=== PATIENT | male | born 1960 | race Caucasian/White ===

== ENCOUNTER 2017-02-27 23:16 | Emergency (ER) | payer OTHER ==
[~2017-02-27] VITALS: Ht 182.9 cm; Wt 88.0 kg
[2017-02-27 23:18] VITALS: BP 173/99; PULSE 86; RESP 16; TEMP 97.9; O2SAT 97
--- NOTE | 2017-02-28 02:34 | PD ---
HPI Chief Complaint: Skin Problem Time Seen by Provider: 02:02 Travel History International Travel<30 days: No Contact w/Intl Traveler<30days: No Traveled to known affect area: No History of Present Illness HPI So 56 year-old woman who presents to the emergency department complaining of draining wound from his rectum. He had an abscess there year or so ago and had a cut into. He states he gets intermittent drainage. He had some pain and fullness today and started draining again. 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 He also states he has a history of chronic pancreatitis, drinks alcohol regularly, and is been on a some intermittent pains in his upper abdomen as well. History Past Medical History Medical History: Denies Significant Hx Tetanus Vaccination: Unknown Influenza Vaccination: No Social History Alcohol Use: Yes (DAILY 8-10 DRINKS DAILY) Tobacco Use: Yes (CIGARS) Allergies-Medications (Allergen,Severity, Reaction): Coded Allergies: Penicillin (Verified Adverse Reaction, Intermediate, SYNCOPE, 02/28/17) Reported Meds & Prescriptions Reported Meds & Active Scripts Active No Active Prescriptions or Reported Medications Review of Systems Except as stated in HPI: all other systems reviewed are Neg Physical Exam Narrative GENERAL: Well-appearing 56 year-old woman, no acute distress. SKIN: Focused skin assessment warm/dry. CARDIOVASCULAR: Regular rate and rhythm. No murmur appreciated. RESPIRATORY: No accessory muscle use. Clear to auscultation. Breath sounds equal bilaterally. GASTROINTESTINAL: Abdomen soft, non-tender, nondistended. Hepatic and splenic margins not palpable. MUSCULOSKELETAL: No obvious deformities. No clubbing. No cyanosis. No edema. RECTAL: Normal appearance of the rectum. Just adjacent to it on the left medial buttock, a centimeter or so remote from the rectum, there is a small hole without erythema redness. There is some drainage. This appears to be a fistula. Data Data Last Documented VS Vital Signs Date Time Temp Pulse Resp B/P Pulse Ox O2 Delivery O2 Flow Rate FiO2 02/27/17 23:18 97.9 86 16 173/99 97 Room Air [facility] Medical Decision Making Medical Screen Exam Complete: Yes Emergency Medical Condition: Yes Differential Diagnosis Abscess, fistula, cyst, other Narrative Course Medical decision making 48 year-old woman what appears to be a fistula in his rectum. This is likely secondary to the abscess that was drained. Recommend follow-up with colorectal surgery. Diagnosis Primary Impression: Fistula Referrals: Junaid Lang MD 1 week Doroteo Snow MD 1 week Therese Vasquez MD 1 week Additional Instructions: Follow-up with the colorectal surgeon of your choice for further evaluation of your fistula. Return to the emergency department for any new or worsening symptoms. Med/Other Pt SpecificInfo: No Change to Meds Scripts No Active Prescriptions or Reported Meds Disposition: 01 DISCHARGE HOME Condition: Stable Nic Dillon MD Feb 28, 2017 02:34
== END 2017-02-28 02:57 | disposition home or self-care (01) ==
LOC: NEPC 23:16
DX: K60.4 Rectal fistula (principal); F17.290 Nicotine dependence, other tobacco product, uncomplicated
CPT/HCPCS: 99282

== ENCOUNTER 2017-09-29 18:04 | Emergency (ER) | payer OTHER ==
[2017-09-29 18:06] VITALS: BP 180/99; PULSE 105; RESP 16; TEMP 97.8; O2SAT 98
[2017-09-29] MEDS ORDERED: IBUP-232 PO (18:52)
--- NOTE | 2017-09-29 19:15 | PD ---
HPI Chief Complaint: Musculoskeletal Complaint Time Seen by Provider: 19:11 Travel History International Travel<30 days: No Contact w/Intl Traveler<30days: No Traveled to known affect area: No History of Present Illness HPI 56-year-old white male presents to emergency department with complaints of a area of swelling to his right flank which is noted after a fall 10 days ago. Patient states that he had slipped while walking in a pair of flip-flops falling down on the edge of a set of stairs with his right flank. The patient had immediate pain and swelling. He states that he had large area of bruising. Over the past week the bruising has now resolved but he has noted an area of mild tenderness and swelling to his right flank. The patient was concerned and presents to the ER for evaluation. He denies any head injury. No central bony back pain. No nausea vomiting. No abdominal pain. No dysuria, frequency, hematuria. He's been eating and drinking normally. Pain is mild. He does not have a primary care doctor. He does have a history of hypertension which goes untreated. History Past Medical Histgory Narrative Medical Hypertension Tetanus Vaccination: < 5 Years Past Surgical History Narrative Surgical Left ankle fracture with ORIF Social History Alcohol Use: Yes (DAILY 8-10 DRINKS DAILY) Tobacco Use: Yes (CIGARS) Allergies-Medications (Allergen,Severity, Reaction): Coded Allergies: penicillin G (Unverified Adverse Reaction, Intermediate, SYNCOPE, 09/29/17) Reported Meds & Prescriptions Reported Meds & Active Scripts Active Reported Ibuprofen 600 Mg Tab 600 Mg PO Q6H PRN Review of Systems Except as stated in HPI: all other systems reviewed are Neg Physical Exam Narrative GENERAL: Well-developed, well-nourished in no acute distress. Nontoxic appearing. HEAD: Normocephalic, atraumatic. EYES: Pupils equal round and reactive. Extraocular motions intact. No scleral icterus. No injection or drainage. ENT: TMs clear without erythema. The external auditory canals clear. Nose: clear . Posterior pharynx is pink and moist. No tonsillar edema or exudate. Uvula midline. Airway patent. NECK: Trachea midline.Supple, nontender, moves head freely. No central bony tenderness or spasm. CARDIOVASCULAR: Regular rate and rhythm without murmurs, gallops, or rubs. RESPIRATORY: Clear to auscultation. Breath sounds equal bilaterally. No wheezes , rales, or rhonchi. GASTROINTESTINAL: Abdomen soft, non-tender, nondistended. No hepato-splenomegaly , or palpable masses. No guarding. EXTREMITIES: No clubbing, cyanosis, or edema. No joint tenderness, effusion, or edema noted. BACK: Nontender without deformity or crepitance. No flank tenderness. Patient has a large hematoma to the right flank. It is a soft tissue area measuring approximately 6 x 8 cm. It is mobile. Minimal tenderness. Data Data Last Documented VS Vital Signs Date Time Temp Pulse Resp B/P (MAP) Pulse Ox O2 Delivery O2 Flow Rate FiO2 09/29/17 18:06 97.8 105 16 180/99 (126) 98 MDM Medical Screen Exam Complete: Yes Emergency Medical Condition: No Differential Diagnosis MDM: High Differential diagnoses: Fracture, sprain, strain, dislocation, contusion, neurovascular injury Narrative Course Patient has a large hematoma to his right flank. I see no emergent condition at this time. The does not appear to be infectious. Patient is moving freely. A medical screening exam was performed: At the time of evaluation the presenting medical condition was determined not to be of an emergent nature. The patient was given the option of receiving additional care, but declined. Patient was given options for additional community resources from which to obtain care. The Patient Has Been advised to seek medical attention for their presenting complaint. The patient has been advised to return to the ER at any time if an emergent condition develops. Primary Impression: Encounter for medical screening examination Condition: Vivek Gonzalez Sep 29, 2017 19:15
[2017-09-29 19:20] VITALS: BP 133/87; PULSE 84; RESP 16; O2SAT 98
== END 2017-09-29 19:28 | disposition left against medical advice (07) ==
LOC: NEPK 18:04
DX: S30.1XXA Contusion of abdominal wall, initial encounter (principal); W10.9XXA Fall (on) (from) unspecified stairs and steps, initial encounter; Y93.01 Activity, walking, marching and hiking
CPT/HCPCS: 99281

== ENCOUNTER 2017-11-05 12:14 | Emergency (ER) | payer OTHER ==
[~2017-11-05] VITALS: Ht 180.3 cm; Wt 100.0 kg
[~2017-11-05 12:14] MED LIST: IBUP-232 PO
[2017-11-05 12:16] VITALS: BP 180/108; PULSE 88; RESP 16; TEMP 97.8; O2SAT 98
--- NOTE | 2017-11-05 12:43 | PD ---
HPI Chief Complaint: Eye Problems/Injury Time Seen by Provider: 12:34 Travel History International Travel<30 days: No Contact w/Intl Traveler<30days: No Traveled to known affect area: No History of Present Illness HPI 57-year-old male presents to the emergency department for evaluation of erythematous left eye. He denies any visual changes. He does report associated pain and drainage. No photophobia. Patient denies any trauma or foreign body to the left eye. He has no chronic medical problems and takes no prescribed medications. Current pain is 8/10 without radiation. Reports some mild nasal congestion as well, but no other symptoms. He states he went to an urgent care yesterday who performed a fluorescein examination and no abnormality was found. He was prescribed antibiotic eyedrops yesterday. Patient denies any other symptoms or complaints at this time. Moderate severity. Patient does not wear contacts. PFSH Past Medical History Hx Anticoagulant Therapy: No Immunizations Current: No Pancreatitis: Yes (HX OF) Past Surgical History Other Surgery: Yes Social History Alcohol Use: Yes (DAILY 8-10 DRINKS DAILY) Tobacco Use: Yes (CIGARS) Substance Use: Yes (HX OF IV COCAINE, currently uses Xanax off the street, no current IV drug use) Allergies-Medications (Allergen,Severity, Reaction): Coded Allergies: penicillin G (Unverified Adverse Reaction, Intermediate, SYNCOPE, 09/29/17) Reported Meds & Prescriptions Reported Meds & Active Scripts Active Reported Ibuprofen 600 Mg Tab 600 Mg PO Q6H PRN Review of Systems Except as stated in HPI: all other systems reviewed are Neg Physical Exam Narrative GENERAL: Well-nourished, well-developed male patient, afebrile. SKIN: Focused skin assessment warm/dry. HEAD: Normocephalic. Atraumatic. EYES: No scleral icterus. Left sclera is erythematous. PERRLA. EOM intact. No photophobia or consensual photophobia on exam. Fluorescein examination shows a corneal abrasion to the 5 o'clock position. IOP is 16 in the right eye and 12 in the left eye. No foreign body seen on upper lid eversion. NECK: Supple, trachea midline. No JVD or lymphadenopathy. CARDIOVASCULAR: Regular rate and rhythm without murmurs, gallops, or rubs. RESPIRATORY: Breath sounds equal bilaterally. No accessory muscle use. Lungs sounds are clear to auscultation. GASTROINTESTINAL: Abdomen soft, non-tender, nondistended. MUSCULOSKELETAL: No cyanosis, or edema. BACK: Nontender without obvious deformity. No CVA tenderness. Data Data Last Documented VS Vital Signs Date Time Temp Pulse Resp B/P (MAP) Pulse Ox O2 Delivery O2 Flow Rate FiO2 11/05/17 12:16 97.8 88 16 180/108 (132) 98 Room Air Orders Orders Proparacaine 0.5% Opth Soln (Alcaine 0.5 (11/05/17 12:45) MDM Medical Decision Making Medical Screen Exam Complete: Yes Emergency Medical Condition: Yes Medical Record Reviewed: Yes Differential Diagnosis Conjunctivitis versus iritis versus foreign body versus acute glaucoma Narrative Course 57-year-old male presents to the emergency department for evaluation of left eye symptoms that started 2 days ago. He was prescribed antibiotic eyedrops yesterday by an urgent care. Fluorescein examination shows a corneal abrasion to the 5 o'clock position. No findings of iritis or acute glaucoma. Visual acuity is 20/100 bilaterally. He reports history of astigmatism. He is to continue antibiotic eyedrops as prescribed. I will give him the name and number of her call center consultant pony trimmer for follow-up. He verbalizes agreement and understanding. The patient was discharged in stable condition with instructions, including return instructions and follow up instructions. Diagnosis Primary Impression: Corneal abrasion, left Qualified Codes: S05.02XA - Injury of conjunctiva and corneal abrasion without foreign body, left eye, initial encounter Referrals: Roxy Low MD call for appointment Patient Instructions: Corneal Abrasion (ED), General Instructions Additional Instructions: Continue antibiotic eyedrops as prescribed. Warm, moist compresses. Follow-up with call center consultant. Dr. Low is her call center consultant pony trimmer. Please call her office for an appointment. Return to the emergency department for any acute worsening of symptoms. Med/Other Pt SpecificInfo: No Change to Meds Disposition: 01 DISCHARGE HOME Condition: Stable Merly Be Nov 05, 2017 12:43
[2017-11-05] MEDS ORDERED: PROPARACAINE HCL 0.5% OPHT SOLN 15 ML BTL EACH EYE ONE (12:45)
== END 2017-11-05 13:45 | disposition home or self-care (01) ==
LOC: NEPK 12:14
DX: S05.02XA Injury of conjunctiva and corneal abrasion without foreign body, left eye, initial encounter (principal); X58.XXXA Exposure to other specified factors, initial encounter; Z72.0 Tobacco use
CPT/HCPCS: 99283

== ENCOUNTER 2018-04-28 09:46 | Observation (INO) ==
--- NOTE | 2018-04-28 10:46 | ED ---
HPI General Chief Complaint: Chest Pain Stated Complaint: GI Time Seen by Provider: 04/28/18 10:36 History of Present Illness HPI narrative: This patient complains of chest pain. He describes it as a tightness and a pressure. It is in the left lower chest. He is not having abdominal pain today. He does have history of pancreatitis and alcoholism. Symptom severity is moderate. This is been going on intermittently for about 2 months. He is an ex-smoker and has hypertension which he does not treat. Denies alcohol today. No alleviating factors. No exacerbating factors. Does not think he is ever had stress testing. Complete Quality Measures for STEMI Alert Patients Related Data Home Medications Medication Instructions Recorded Confirmed No Known Home Medications 04/28/18 04/28/18 Allergies Allergy/AdvReac Type Severity Reaction Status Date / Time penicillin G AdvReac Intermediate SYNCOPE Verified 04/28/18 10:20 Review of Systems ROS: all other systems reviewed are negative PMFSH Social History Social History Substance History: Past History Second Hand Smoke Exposure: Yes Smoking Status: Current every day smoker Tobacco Type: Cigars How Often Do You Have a Drink Containing Alcohol: 2 to 3 times a week Recent Out of Country Travel within the Last 8 Weeks: No Immunization History Tetanus Immunization: <5 Years Hx Influenza Vaccine This Season: No Exam Narrative Exam Narrative: GENERAL: Well-nourished, well-developed patient in no apparent distress. SKIN: Focused skin assessment reveals no rash and nodules. Skin is Warm and dry. HEAD: Atraumatic. Normocephalic. EYES: Pupils equal and round. No scleral icterus. No injection or drainage. ENT: No nasal bleeding or discharge. Mucous membranes pink and moist. NECK: Trachea midline. No JVD. CARDIOVASCULAR: Regular rate and rhythm. No murmur appreciated. RESPIRATORY: No accessory muscle use. Clear to auscultation. Breath sounds equal bilaterally. GASTROINTESTINAL: Abdomen soft, non-tender, nondistended. Hepatic and splenic margins not palpable. MUSCULOSKELETAL: No obvious deformities. No clubbing. No cyanosis. No edema. NEUROLOGICAL: Awake and alert. No obvious cranial nerve deficits. Motor grossly within normal limits. Normal speech. PSYCHIATRIC: Appropriate mood and affect; insight and judgment normal. Course Initial Documented Vital Signs Temperature 97.8 F 04/28/18 10:01 Pulse Rate 97 H 08/15/18 10:01 Respiratory Rate 18 04/28/18 10:01 Pulse Oximetry 97 04/28/18 10:01 Last Documented Vital Signs Temperature 97.8 F 04/28/18 10:01 Pulse Rate 86 04/28/18 15:44 Respiratory Rate 18 04/28/18 15:44 Blood Pressure 182/100 H 04/28/18 15:44 Pulse Oximetry 98 04/28/18 15:44 Medical Decision Making MDM Narrative Medical decision making narrative: IV placed and labs sent. I reviewed his EKG which shows sinus rhythm and no acute ST elevation I reviewed his chest x-ray which is negative CBC shows thrombocytopenia, likely from alcoholic liver disease. He is not intoxicated now. His mental status is normal. Metabolic's are reviewed. He will be a 23 hour observation in the chest pain center to rule out cardiac cause of his symptoms. He is currently chest pain-free. Medical Screen Exam Complete: Yes Emergency Medical Condition: Yes Medical Records Medical records reviewed: Yes I reviewed the patient's medical records. Lab Data Result diagrams: 04/28/18 10:56 04/28/18 10:56 Lab Results 04/28/18 04/28/18 04/28/18 Range/Units 10:56 10:56 10:56 WBC 4.9 (4.0-11.0) th/mm3 RBC 4.41 L (4.50-5.90) mil/mm3 Hgb 16.2 (13.0-17.0) gm/dL Hct 45.8 (39.0-51.0) % MCV 103.9 H (80.0-100.0) fL MCH 36.7 H (27.0-34.0) pg MCHC 35.3 (32.0-36.0) % RDW 13.5 (11.6-17.2) % Plt Count 56 L (150-450) th/mm3 MPV 8.4 (7.0-11.0) fL Prelim Diff (Auto) Slide review pending Neut % (Auto) 71.1 H (16.0-70.0) % Lymph % (Auto) 20.9 (9.0-44.0) % Fisher % (Auto) 7.0 (0.0-8.0) % Eos % (Auto) 0.4 (0.0-4.0) % Baso % (Auto) 0.6 (0.0-2.0) % Neut # (Auto) 3.5 (1.8-7.7) th/mm3 Lymph # (Auto) 1.0 (1.0-4.8) th/mm3 Fisher # (Auto) 0.3 (0.0-0.9) th/mm3 Eos # (Auto) 0.0 (0.0-0.4) th/mm3 Baso # (Auto) 0.0 (0.0-0.2) th/mm3 WBC Differential . Diff Scan Auto diff confirmed Differential Comment . Platelet Estimate Low L (Normal) Platelet Morphology Normal (Normal) Stomatocytes 1+ H (None) PT 10.6 (9.8-11.6) sec INR 1.0 Ratio APTT 24.8 (24.3-30.1) sec Sodium (136-145) meq/L Potassium (3.5-5.1) meq/L Chloride (98-107) meq/L Carbon Dioxide (21.0-32.0) meq/L Anion Gap (5-15) meq/L BUN (7-18) mg/dL Creatinine (0.60-1.30) mg/dL Estimated GFR (>89) mL/min Random Glucose (74-106) mg/dL Calcium (8.5-10.1) mg/dL Total Bilirubin (0.2-1.0) mg/dL AST (15-37) U/L ALT (12-78) U/L Alkaline Phosphatase (45-117) U/L Total Creatine Kinase (39-308) U/L CK-MB (CK-2) (0.5-3.6) ng/mL Troponin I Less than 0.02 L (0.02-0.05) ng/mL Total Protein (6.4-8.2) g/dL Albumin (3.4-5.0) g/dL Lipase 238 (73-393) U/L Serum Alcohol Less than 3 (0-5) mg/dL 04/28/18 Range/Units 10:56 WBC (4.0-11.0) th/mm3 RBC (4.50-5.90) mil/mm3 Hgb (13.0-17.0) gm/dL Hct (39.0-51.0) % MCV (80.0-100.0) fL MCH (27.0-34.0) pg MCHC (32.0-36.0) % RDW (11.6-17.2) % Plt Count (150-450) th/mm3 MPV (7.0-11.0) fL Prelim Diff (Auto) Neut % (Auto) (16.0-70.0) % Lymph % (Auto) (9.0-44.0) % Fisher % (Auto) (0.0-8.0) % Eos % (Auto) (0.0-4.0) % Baso % (Auto) (0.0-2.0) % Neut # (Auto) (1.8-7.7) th/mm3 Lymph # (Auto) (1.0-4.8) th/mm3 Fisher # (Auto) (0.0-0.9) th/mm3 Eos # (Auto) (0.0-0.4) th/mm3 Baso # (Auto) (0.0-0.2) th/mm3 WBC Differential Diff Scan Differential Comment Platelet Estimate (Normal) Platelet Morphology (Normal) Stomatocytes (None) PT (9.8-11.6) sec INR Ratio APTT (24.3-30.1) sec Sodium 137 (136-145) meq/L Potassium 3.2 L (3.5-5.1) meq/L Chloride 97 L (98-107) meq/L Carbon Dioxide 27.7 (21.0-32.0) meq/L Anion Gap 12 (5-15) meq/L BUN 13 (7-18) mg/dL Creatinine 1.33 H (0.60-1.30) mg/dL Estimated GFR 55 L (>89) mL/min Random Glucose 128 H (74-106) mg/dL Calcium 9.4 (8.5-10.1) mg/dL Total Bilirubin 1.8 H (0.2-1.0) mg/dL AST 296 H (15-37) U/L ALT 111 H (12-78) U/L Alkaline Phosphatase 103 (45-117) U/L Total Creatine Kinase 133 (39-308) U/L CK-MB (CK-2) 1.5 (0.5-3.6) ng/mL Troponin I (0.02-0.05) ng/mL Total Protein 7.7 (6.4-8.2) g/dL Albumin 3.9 (3.4-5.0) g/dL Lipase (73-393) U/L Serum Alcohol (0-5) mg/dL Imaging Data Radiologist's impression: Chest X-Ray 04/28/18 10:42 CONCLUSION: No acute cardiopulmonary process. Discharge Plan Discharge Disposition Patient Disposition: 30 Still Patient Discharge Details Diagnosis: Chest pain in adult Physicians Team ED Provider: Bayron Jacques Primary Care Provider: Primary Care Jyotsna Bowling Rxs /Orders / Referrals /Forms Prescriptions: No Action No Known Home Medications RF: 0 Discharge Instructions Patient Printed Instructions: Chest Pain (ED) Discharge Interventions Interventions: Vital Signs Last Done: 04/28/18 12:00 Status ED Status: With Doctor
--- NOTE | 2018-04-28 10:55 | XR ---
EXAM DATE: 04/28/2018 10:53 AM EDT AGE/SEX: 57 years / Male INDICATIONS: Chest pain and shortness of breath. CLINICAL DATA: This is the patient's initial encounter. Patient reports that signs and symptoms have been present for 3 days and indicates a pain score of 8/10. MEDICAL/SURGICAL HISTORY: Hypertension. Pancreatitis. None. COMPARISON: [facility] [place], CHEST SINGLE AP, 11/28/2014. . FINDINGS: A single AP view of the chest demonstrates the lungs to be symmetrically aerated without evidence of mass, infiltrate or effusion. The cardiomediastinal contours are unremarkable. Osseous structures a re intact. CONCLUSION: No acute cardiopulmonary process. Electronically signed by: Red Rainey MD 04/28/2018 10:54 AM EDT
--- NOTE | 2018-04-28 11:42 | ECG ---
Date Performed: 04/28/2018 Time Performed: 10:21:36 PTAGE: 57 years EKG: Sinus rhythm POSSIBLE RIGHT VENTRICULAR CONDUCTION DELAY POSSIBLE INFERIOR MYOCARDIAL INFARCTION ABNORMAL ECG NO PREVIOUS TRACING DOCTOR: Figueroa Castro Interpretating Date/Time 04/28/2018 11:40:51
[2018-04-28 12:05] LABS: Baso % (Auto) 0.6 % (0.0-2.0); Eos % (Auto) 0.4 % (0.0-4.0); Hematocrit 45.8 % (39.0-51.0); Hemoglobin 16.2 gm/dL (13.0-17.0); Lymph % (Auto) 20.9 % (9.0-44.0); Mean Corpuscular HGB Conc 35.3 % (32.0-36.0); Mean Corpuscular Hemoglobin 36.7 pg (27.0-34.0); Mean Corpuscular Volume 103.9 fL (80.0-100.0); Mean Platelet Volume 8.4 fL (7.0-11.0); Mono # (Auto) 0.3 th/mm3 (0.0-0.9); Neut # (Auto) 3.5 th/mm3 (1.8-7.7); Neut % (Auto) 71.1 % (16.0-70.0); Platelet Count 56 th/mm3 (150-450); Red Blood Count 4.41 mil/mm3 (4.50-5.90); Red Cell Distribution Width 13.5 % (11.6-17.2); White Blood Count 4.9 th/mm3 (4.0-11.0)
[2018-04-28 12:14] LABS: Activated Partial Thrombo Time 24.8 sec (24.3-30.1); Prothrombin Time 10.6 sec (9.8-11.6)
[2018-04-28 12:27] LABS: Alanine Aminotransferase 111 U/L (12-78); Albumin 3.9 g/dL (3.4-5.0); Anion Gap 12 meq/L (5-15); Aspartate Aminotransferase 296 U/L (15-37); Blood Urea Nitrogen 13 mg/dL (7-18); Calcium 9.4 mg/dL (8.5-10.1); Carbon Dioxide 27.7 meq/L (21.0-32.0); Chloride 97 meq/L (98-107); Glomerular Filtration Rate 55 mL/min (>89); Glucose,Random 128 mg/dL (74-106); Potassium 3.2 meq/L (3.5-5.1); Sodium 137 meq/L (136-145)
[2018-04-28 12:28] LABS: Lipase 238 U/L (73-393)
[2018-04-28 12:29] LABS: Alkaline Phosphatase 103 U/L (45-117); Creatine Kinase 133 U/L (39-308); Total Protein 7.7 g/dL (6.4-8.2)
[2018-04-28 12:39] LABS: Platelet Morphology Normal (Normal); Stomatocytes 1+
[2018-04-28 12:52] LABS: Creatine Kinase MB 1.5 ng/mL (0.5-3.6)
[2018-04-28] MEDS ORDERED: Sod Chloride 0.9% Inj 1,000 ML IV.SIG ONE (16:51)
[2018-04-28] MEDS ORDERED: LORazepam 1 MG Tablet PO PRN (16:55)
[2018-04-28] MEDS ORDERED: Haloperidol Inj 5 MG/ML Ampul IV.PUSH PRN (16:55)
[2018-04-28] MEDS ORDERED: Lisinopril 10 MG Tablet PO SCH (17:00)
--- NOTE | 2018-04-28 17:07 | P.HPCA ---
History of Present Illness Primary Care Physician: No Primary Care Physician Chief Complaint: Chest pain History of Present Illness: This is a 57-year-old male with stated history of hypertension and alcoholism that presents to ED with complaint of having 2 months of intermittent left- sided chest discomfort that he describes as a tightness and a pressure. Found nothing in particular to bring it on. States is not exertional. He is found that at times rubbing on the area does seem to help. At times he has been short of breath. Denies diaphoresis. Over the last 2 days he has had nausea and emesis with it but thinks that that may be related to his decision to quit drinking alcohol. Patient states he had been drinking about 10 ounces of whiskey a day for years but decided 2 days ago he would no longer drink alcohol. Since then he has had nausea, vomiting, and diarrhea. Stools have been nonbloody. States his stools have been watery but not a lot of stool per bowel movement. Denies having abdominal pain. His LFTs were elevated and he states that he has had that in the past. He has also had pancreatitis but states this does not feel similar. His lipase is normal today. Cannot recall ever having a stress test or cardiac catheterization. Was diagnosed with hypertension years ago but has not taken medications for a long time. Denies history of DTs. Patient smokes about 2 cigars a day for the last 15 years but prior that he smoked 1 pack cigarettes daily for 20 years. He has an average 10 ounces of whiskey per day but quit drinking 2 days ago. Denies illicit drugs. Denies family history of CAD. States his only surgery was repair of left ankle fracture. - Diagnosis (1) Chest pain (2) Hypertension (3) Alcohol abuse (4) Elevated LFTs (5) Tobacco abuse Review of Systems General: Patient denies fevers, chills, and recent travel. HEENT: Patient denies headache, sore throat, difficulty swallowing. Cardiovascular: Has the chest discomfort as mentioned above. Denies sensation of heart beating rapidly or irregularly. No syncope. Denies diaphoresis. Respiratory: Mild shortness of breath. Denies shortness of breath or inspirational chest discomfort. Denies coughing wheezing or hemoptysis. GI: He has had nausea with a few episodes of emesis. She also had diarrhea. Patient denies abdominal pain and bloody stools. Musculoskeletal: Patient denies joint pain or edema. Denies calf pain or edema. Neurovascular: Patient denies numbness, tingling, weakness in extremities. Denies headache. Endocrine: Denies polyuria and polydipsia. Hematologic: Denies easy bruising. Skin: Denies rash or itching. PMFSH - History History Provided By: Patient - Medical History Medical History: Medical History (Last Reviewed 04/24/18 @ 07:32 by FARRUKH Dietrich) Alcohol abuse History of ankle fracture Pancreatitis - Tobacco History Second Hand Smoke Exposure: Yes Tobacco Use In Past 30 Days: Yes Smoking Status: Current every day smoker Tobacco Type: Cigars - Alcohol History How Often Do You Have a Drink Containing Alcohol: 2 to 3 times a week - Substance Use History Substance History: Past History - Travel History Recent Travel Out of the Country Within the Last 8 Weeks: No - Immunization History Tetanus Immunization: <5 Years Hx Influenza Vaccine This Season: No Medications and Allergies Active Medications: Active Medications Albuterol (Duoneb Neb (Prn)) 1 ampul NEB Q4HR NEB PRN PRN Reason: SHORTNESS OF BREATH/WHEEZING Aspirin (Aspirin) 325 mg PO DAILY DEV Clonidine HCl (Catapres) 0.1 mg PO Q6H PRN PRN Reason: SBP >165 OR DBP > 110 Sodium Chloride (Ns Inj) 1,000 mls @ 0 mls/hr IV.SIG BOLUS ONE Stop: 04/28/18 16:52 Lisinopril (Prinivil) 10 mg PO DAILY DEV Multivitamins (Theragran) 1 tab PO DAILY DEV Ondansetron HCl (Zofran Inj) 4 mg IV.PUSH Q6H PRN PRN Reason: NAUSEA Pantoprazole Sodium (Protonix) 40 mg PO DAILY DEV Sodium Chloride (Ns Flush) 2 ml IV.FLUSH UNSCH PRN PRN Reason: FLUSH AFTER USING IV ACCESS Sodium Chloride (Ns Flush) 2 ml IV.FLUSH BID DEV Sodium Chloride (Ns Flush) 2 ml IV.FLUSH PRN PRN PRN Reason: FLUSH AFTER USING IV ACCESS Thiamine HCl (Vitamin B1) 100 mg PO ONCE ONE Stop: 04/28/18 16:53 Allergies Allergy/AdvReac Type Severity Reaction Status Date / Time penicillin G AdvReac Intermediate SYNCOPE Verified 04/28/18 10:20 Home Medications Medication Instructions Recorded Confirmed Type No Known Home Medications 04/28/18 04/28/18 History Exam Vital signs: Vital Signs 04/28/18 10:01 04/28/18 10:03 04/28/18 10:22 Temperature 97.8 F Pulse Rate 97 H 87 Respiratory Rate 18 17 Blood Pressure 177/112 H 162/106 H Pulse Oximetry 97 97 04/28/18 12:00 04/28/18 15:44 Temperature Pulse Rate 87 86 Respiratory Rate 19 18 Blood Pressure 177/104 H 182/100 H Pulse Oximetry 97 98 Intake & Output 04/27/18 04/28/18 04/28/18 18:59 06:59 18:59 Weight 102.058 kg Narrative: GENERAL: This is a well-nourished, well-developed patient, in no apparent distress. Patient speaks in clear complete sentences. Patient is pleasant. HEENT: Head is atraumatic and normocephalic. Neck is supple without lymphadenopathy and trachea is midline. No JVD or carotid bruits. CARDIOVASCULAR: Regular rate and rhythm without murmurs, gallops, or rubs. RESPIRATORY: Mild wheezes bilateral bases. Breath sounds equal bilaterally. No rales or rhonchi. Chest wall is nontender. No use of accessory muscles. GASTROINTESTINAL: Abdomen is nontender, nondistended. Abdomen soft. No obvious pulsatile mass or bruit. No CVA tenderness. Strong femoral pulses bilaterally. Normal bowel sounds in all quadrants. MUSCULOSKELETAL: Patient is moving upper and lower extremities freely. No calf tenderness or edema, no Homans sign. Strong pulses in upper and lower extremities. NEUROLOGICAL: Patient is alert and oriented. Cranial nerves 2-12 are grossly intact. No focal deficits and speech is clear. SKIN: No rash and turgor is normal. Results 04/28/18 10:56 04/28/18 10:56 Cardiac Enzymes 04/28/18 04/28/18 Range/Units 10:56 10:56 AST 296 H (15-37) U/L CK-MB (CK-2) 1.5 (0.5-3.6) ng/mL Troponin I Less than 0.02 L (0.02-0.05) ng/mL Coagulation 04/28/18 Range/Units 10:56 PT 10.6 (9.8-11.6) sec APTT 24.8 (24.3-30.1) sec CBC 04/28/18 Range/Units 10:56 WBC 4.9 (4.0-11.0) th/mm3 RBC 4.41 L (4.50-5.90) mil/mm3 Hgb 16.2 (13.0-17.0) gm/dL Hct 45.8 (39.0-51.0) % Plt Count 56 L (150-450) th/mm3 Neut # (Auto) 3.5 (1.8-7.7) th/mm3 Lymph # (Auto) 1.0 (1.0-4.8) th/mm3 [place] # (Auto) 0.3 (0.0-0.9) th/mm3 Eos # (Auto) 0.0 (0.0-0.4) th/mm3 Baso # (Auto) 0.0 (0.0-0.2) th/mm3 Comprehensive Metabolic Panel 04/28/18 Range/Units 10:56 Sodium 137 (136-145) meq/L Potassium 3.2 L (3.5-5.1) meq/L Chloride 97 L (98-107) meq/L Carbon Dioxide 27.7 (21.0-32.0) meq/L BUN 13 (7-18) mg/dL Creatinine 1.33 H (0.60-1.30) mg/dL Calcium 9.4 (8.5-10.1) mg/dL AST 296 H (15-37) U/L ALT 111 H (12-78) U/L Alkaline Phosphatase 103 (45-117) U/L Total Protein 7.7 (6.4-8.2) g/dL Albumin 3.9 (3.4-5.0) g/dL Intake and Output 04/28/18 04/28/18 04/28/18 06:59 14:59 22:59 Other: Weight 102.058 kg Patient Weight 04/29/18 06:59 Weight 102.058 kg EKG interpretations - EKG EKG shows: sinus rhythm (Initial EKG is sinus rhythm without significant ST segment depressions or elevations.) Caprini VTE Risk Assessment Caprini VTE Risk Assessment: No/Low Risk (score <= 1) Caprini Risk Assessment Model: Point Value = 1 Point Value = 2 Point Value = 3 Point Value = 5 Age 41-60 Minor surgery BMI > 25 kg/m2 Swollen legs Varicose veins or History of unexplained or recurrent spontaneous Oral contraceptives or hormone replacement Sepsis (< 1 month) Serious lung disease, including pneumonia (< 1 month) Abnormal pulmonary function Acute myocardial infarction Congestive heart failure (< 1 month) History of inflammatory bowel disease Medical patient at bed rest Age 61-74 Arthroscopic surgery Major open surgery (> 45 min) Laparoscopic surgery (> 45 min) Malignancy Confined to bed (> 72 hours) Immobilizing plaster cast Central venous access Age >= 75 History of VTE Family history of VTE Factor V Leiden Prothrombin [id number] Lupus anticoagulant Anticardiolipin antibodies Elevated serum homocysteine Heparin-induced thrombocytopenia Other congenital or acquired thrombophilia Stroke (< 1 month) Elective arthroplasty Hip, pelvis, or leg fracture Acute spinal cord injury (< 1 month) Prophylaxis Regimen: Total Risk Factor Score Risk Level Prophylaxis Regimen 0-1 Low Early ambulation 2 Moderate Order ONE of the following: *Sequential Compression Device (SCD) *Heparin 5000 units SQ BID 3-4 Higher Order ONE of the following medications: *Heparin 5000 units SQ TID *Enoxaparin/Lovenox 40 mg SQ daily (WT < 150 kg, CrCl > 30 mL/min) *Enoxaparin/Lovenox 30 mg SQ daily (WT < 150 kg, CrCl > 10-29 mL/min) *Enoxaparin/Lovenox 30 mg SQ BID (WT < 150 kg, CrCl > 30 mL/min) AND/OR *Sequential Compression Device (SCD) 5 or more Highest Order ONE of the following medications: *Heparin 5000 units SQ TID (Preferred with Epidurals) *Enoxaparin/Lovenox 40 mg SQ daily (WT < 150 kg, CrCl > 30 mL/min) *Enoxaparin/Lovenox 30 mg SQ daily (WT < 150 kg, CrCl > 10-29 mL/min) *Enoxaparin/Lovenox 30 mg SQ BID (WT < 150 kg, CrCl > 30 mL/min) AND *Sequential Compression Device (SCD) Assessment and Plan - Assessment (1) Chest pain Code(s): R07.9 - Chest pain, unspecified Status: Acute (2) Hypertension Code(s): I10 - Essential (primary) hypertension Status: Acute (3) Alcohol abuse Code(s): F10.10 - Alcohol abuse, uncomplicated Status: Acute (4) Elevated LFTs Code(s): R94.5 - Abnormal results of liver function studies Status: Acute (5) Tobacco abuse Code(s): Z72.0 - Tobacco use Status: Acute - Plan * Chest pain: Patient will continue to have serial cardiac enzymes and EKGs for ruling out purposes. He will be seen by Dr. Sims of cardiology in the chest pain center in the morning. Patient will likely need a Lexiscan in the morning as he is not quite sure if he can walk on a treadmill. Patient would be discharged home however if stress test is nonischemic with instructions to follow-up with PCP. Return to ED for interval issues. * Hypertension: States he was on medication years ago but cannot recall it. We will try lisinopril and continue to monitor. Have Catapres as needed. * Alcohol abuse: [facility] protocol. He is to follow-up with outpatient therapy. * Tobacco abuse: Patient counseled on importance of smoking cessation. * Elevated LFTs: Patient has had this in the past. He needs to quit the alcohol abuse and follow-up with PCP for evaluation. Patient is stable at this time. He is agreeable to this plan.
[2018-04-28] MEDS: Lisinopril 10 MG Tablet PO SCH (17:43)
[2018-04-28] MEDS ORDERED: chlordiazePOXIDE 25 MG Capsule PO ONE (18:00)
[2018-04-28 18:07] LABS: Creatine Kinase 110 U/L (39-308)
[2018-04-28 21:41] LABS: Creatine Kinase 121 U/L (39-308)
--- NOTE | 2018-04-29 08:16 | P.PNCA ---
Subjective Interval history: No complaints overnight. No further chest discomfort. Denies feeling of DTs. States he is hungry. Physical Exam Vital signs: Vital Signs 04/28/18 10:01 04/28/18 10:03 04/28/18 10:22 Temperature 97.8 F Pulse Rate 97 H 87 Respiratory Rate 18 17 Blood Pressure 177/112 H 162/106 H Pulse Oximetry 97 97 04/28/18 12:00 04/28/18 15:44 04/28/18 17:48 Temperature Pulse Rate 87 86 75 Respiratory Rate 19 18 17 Blood Pressure 177/104 H 182/100 H 182/111 H Pulse Oximetry 97 98 99 04/28/18 18:36 04/29/18 00:25 04/29/18 04:23 Temperature 97.9 F 98.4 F 98.9 F Pulse Rate 71 71 72 Respiratory Rate 16 20 20 Blood Pressure 168/98 H 147/88 H 162/93 H Pulse Oximetry 98 100 99 Intake & Output 04/28/18 04/29/18 04/29/18 18:59 06:59 18:59 Intake Total 1140 / 1140 Balance 1140 / 1140 Weight 99.79 kg Intake: IV 1000 / 1000 NS Inj 1,000 ML @ Wide Open IV. 1000 / 1000 SIG BOLUS ONE Rx#:[id number] Oral 140 / 140 Other: # Voids 3 Weight On Admission 99.79 kg - Constitutional no acute distress - Routine HEENT Exam Head: Present: normocephalic, atraumatic - Routine Neck Exam Present: full ROM - Routine Cardiovascular Exam Present: RRR. Absent: murmur, gallop, rubs - Routine Abdominal Exam Present: soft, normoactive bowel sounds - Routine Extremities Exam Present: full ROM. Absent: edema - Routine Skin Exam Present: intact, dry, warm - Routine Neurological Exam Present: alert, oriented X3, normal speech. Absent: sensory deficit, motor deficit, tremors - Routine Psychiatric Exam Present: normal affect, cooperative, good insight, good judgment Assessment and Plan - Assessment (1) Chest pain Code(s): R07.9 - Chest pain, unspecified Status: Acute Plan: Admitted chest pain center. ACS ruled out 3 sets of EKGs and cardiac enzymes. Will be seen and evaluated by Dr. Jaydon Sims. Likely will proceed with exercise stress testing later this morning. Verbalized understanding and agreeable plan of care. (2) Hypertension Code(s): I10 - Essential (primary) hypertension Status: Acute Plan: Lisinopril 10 mg daily. Continue to monitor. (3) Alcohol abuse Code(s): F10.10 - Alcohol abuse, uncomplicated Status: Acute (4) Elevated LFTs Code(s): R94.5 - Abnormal results of liver function studies Status: Acute Plan: Patient currently trying to quit alcohol, last drink 3 days ago. Instructed to follow-up with PCP. (5) Tobacco abuse Code(s): Z72.0 - Tobacco use Status: Acute Plan: Strongly encouraged and stressed importance of tobacco cessation. Instructed to quit smoking. - Plan * Chest pain: Patient will continue to have serial cardiac enzymes and EKGs for ruling out purposes. He will be seen by Dr. Sims of cardiology in the chest pain center in the morning. Patient will likely need a Lexiscan in the morning as he is not quite sure if he can walk on a treadmill. Patient would be discharged home however if stress test is nonischemic with instructions to follow-up with PCP. Return to ED for interval issues. * Hypertension: States he was on medication years ago but cannot recall it. We will try lisinopril and continue to monitor. Have Catapres as needed. * Alcohol abuse: [facility] protocol. He is to follow-up with outpatient therapy. * Tobacco abuse: Patient counseled on importance of smoking cessation. * Elevated LFTs: Patient has had this in the past. He needs to quit the alcohol abuse and follow-up with PCP for evaluation. Patient is stable at this time. He is agreeable to this plan.
[2018-04-29] MEDS ORDERED: Aspirin 325 MG Tablet PO SCH (09:00)
[2018-04-29] MEDS: Lisinopril 10 MG Tablet PO SCH (09:31)
--- NOTE | 2018-04-29 11:05 | P.PNCA ---
Subjective Interval history: Patient's 57-year-old male who is reviewed and discussed with nurse practitioner and then subsequently personally seen and examined. I am in agreement with documentation as entered his laboratory radiographic and electrocardiographic information was reviewed. Patient has a long history of alcoholism and has been attempting to seek help with [facility] recently however they have had no bed. He has been having chest pain for a couple of months this recently seems to have increased. He also volunteers that he has had no severe reflux with nausea vomiting and diarrhea just prior to coming to the emergency room. His chest pain is atypical and much more consistent with a GI than cardiac. He has had a history of pancreatitis and elevated LFTs. He has never experienced true DTs but does notice that he develops some shaking and becomes EKG during some of his shifts. In essence his primary issue at this time is alcoholism and complications related to it. Physical Exam Vital signs: Vital Signs 04/28/18 12:00 04/28/18 15:44 04/28/18 17:48 Temperature Pulse Rate 87 86 75 Respiratory Rate 19 18 17 Blood Pressure 177/104 H 182/100 H 182/111 H Pulse Oximetry 97 98 99 04/28/18 18:36 04/29/18 00:25 04/29/18 04:23 Temperature 97.9 F 98.4 F 98.9 F Pulse Rate 71 71 72 Respiratory Rate 16 20 20 Blood Pressure 168/98 H 147/88 H 162/93 H Pulse Oximetry 98 100 99 04/29/18 08:00 Temperature 97.9 F Pulse Rate 68 Respiratory Rate 12 Blood Pressure 158/91 H Pulse Oximetry 98 Intake & Output 04/28/18 04/29/18 04/29/18 18:59 06:59 18:59 Intake Total 1140 / 1140 Balance 1140 / 1140 Weight 99.79 kg Intake: IV 1000 / 1000 NS Inj 1,000 ML @ Wide Open IV. 1000 / 1000 SIG BOLUS ONE Rx#:[id number] Oral 140 / 140 Other: # Voids 3 Weight On Admission 99.79 kg Narrative: Well-nourished well-developed man in no acute distress but does seem to be a bit edgy Eyes PERRLA EOMI Mouth mucous membranes moist and well papillated upper partial plate in place no lesions Neck supple no JVD masses nodes or bruits Cardiovascular regular sinus rhythm no gallops rubs or murmurs Abdomen soft slightly tender in the midepigastrium but no guarding rebound no hepatosplenomegaly palpable Extremities no clubbing cyanosis or edema Assessment and Plan - Assessment (1) Chest pain Code(s): R07.9 - Chest pain, unspecified Status: Acute Plan: Admitted chest pain center. ACS ruled out 3 sets of EKGs and cardiac enzymes. Will be seen and evaluated by Dr. Jaydon Sims. Likely will proceed with exercise stress testing later this morning. Verbalized understanding and agreeable plan of care. I am in agreement with the plan as discussed above. The patient has ruled out for ACS and is capable of walking on the treadmill. He will be evaluated with an ETT if this is negative he will be discharged to further see [facility] (2) Hypertension Code(s): I10 - Essential (primary) hypertension Status: Acute Plan: Lisinopril 10 mg daily. Continue to monitor. (3) Alcohol abuse Code(s): F10.10 - Alcohol abuse, uncomplicated Status: Acute (4) Elevated LFTs Code(s): R94.5 - Abnormal results of liver function studies Status: Acute Plan: Patient currently trying to quit alcohol, last drink 3 days ago. Instructed to follow-up with PCP. (5) Tobacco abuse Code(s): Z72.0 - Tobacco use Status: Acute Plan: Strongly encouraged and stressed importance of tobacco cessation. Instructed to quit smoking. - Plan * Chest pain: Patient will continue to have serial cardiac enzymes and EKGs for ruling out purposes. He will be seen by Dr. Sims of cardiology in the chest pain center in the morning. Patient will likely need a Lexiscan in the morning as he is not quite sure if he can walk on a treadmill. Patient would be discharged home however if stress test is nonischemic with instructions to follow-up with PCP. Return to ED for interval issues. * Hypertension: States he was on medication years ago but cannot recall it. We will try lisinopril and continue to monitor. Have Catapres as needed. * Alcohol abuse: [facility] protocol. He is to follow-up with outpatient therapy. * Tobacco abuse: Patient counseled on importance of smoking cessation. * Elevated LFTs: Patient has had this in the past. He needs to quit the alcohol abuse and follow-up with PCP for evaluation. Patient is stable at this time. He is agreeable to this plan.
--- NOTE | 2018-04-29 11:36 | ECG ---
Date Performed: 04/28/2018 Time Performed: 20:46:32 PTAGE: 57 years EKG: Sinus rhythm INCOMPLETE RIGHT BUNDLE BRANCH BLOCK LEFT ANTERIOR FASCICULAR BLOCK MINIMAL VOLTAGE CRITERIA FOR LVH , CONSIDER NORMAL VARIANT INFERIOR MYOCARDIAL INFARCTION ABNORMAL ECG No significant change PREVIOUS TRACING : 04/28/2018 17.52 DOCTOR: Jaydon Sims Interpretating Date/Time 04/29/2018 11:35:09
--- NOTE | 2018-04-29 11:37 | ECG ---
Date Performed: 04/28/2018 Time Performed: 17:52:29 PTAGE: 57 years EKG: Sinus rhythm POSSIBLE RIGHT VENTRICULAR CONDUCTION DELAY INFERIOR MYOCARDIAL INFARCTION ABNORMAL ECG No significa nt change PREVIOUS TRACING : 04/28/2018 10.21 DOCTOR: Jaydon Sims Interpretating Date/Time 04/29/2018 11:35:56
[2018-04-29] MEDS ORDERED: Regadenoson Inj 0.4 MG/5 ML Syringe IV.PUSH ONE (14:17)
[2018-04-29 16:27] VITALS: BP 135/80; PULSE 66; RESP 14; TEMP 98.1; O2SAT 96
--- NOTE | 2018-04-29 16:36 | NM ---
EXAM DATE: 04/29/2018 3:57 PM EDT AGE/SEX: 57 years / Male INDICATIONS:Angina. . Left lower chest pain. CLINICAL DATA: This is the patient's initial encounter. Patient reports that signs and symptoms have been present for 2 months and indicates a pain score of 4/10. MEDICAL/SURGICAL HISTORY: Pancreatitis. Hypertension. Alcoholism. Ex-smoker. None. COMPARISON: No prior exams available for comparison. DOSE: 11.0 mCi Tc 99m Myoview at rest 35.0 mCi [id number] at stress 0.4 mg Lexiscan STRESS SYMPTOMS: None. EJECTION FRACTION: 70 % TECHNIQUE: The patient underwent pharmacologic stress with infusion of prescribed dose. Continuous ECG tracing was monitored during stress. Gated SPECT imaging was performed after stress and conventi onal SPECT imaging was performed at rest. The examination was performed on a SPECT/CT scanner, both attenuation and non-corrected datasets were reviewed. FINDINGS: Distribution: The maximum perfused segment at stress is in the anterolateral wall. Perfusion Study: The pattern of perfusion at stress is within normal limits. Gated Study: There are intact wall motion and wall thickening without hypokinetic or dyskinetic segm ents. The ejection fraction is calculated at 70%. RISK CATEGORY: Low (<1% Annual Motality Rate) CONCLUSION: 1. Left ventricle perfusion is within normal limits. No fixed or reversible perfusion defect is iden tified. 2. Normal left ventricle wall motion and ejection fraction. Electronically signed by: Stan Torres MD 04/29/2018 4:35 PM EDT
[2018-04-29] MEDS ORDERED: chlordiazePOXIDE 25 MG Capsule PO ONE (18:00)
--- NOTE | 2018-04-30 11:17 | TR ---
Date Performed: 04/29/2018 Time Performed: 14:36:23 DOCTOR: Jaydon Sims DRUG LIST: CLINICAL HISTORY: REASON FOR TEST: CHEST PAIN REASON FOR ENDING: OBSERVATION: CONCLUSION: Lexiscan stress test was performed under standard four minute protocol. Radionuclide was injected one minute prior to ending the test. No electrocardiographic abormalities were present to suggest ischemia. Nuclear imaging and interpretation are pending. COMMENTS:
--- NOTE | 2018-04-30 11:18 | TR ---
Date Performed: 04/29/2018 Time Performed: 12:50:26 DOCTOR: Jaydon Sims DRUG LIST: CLINICAL HISTORY: REASON FOR TEST: REASON FOR ENDING: OBSERVATION: CONCLUSION: Matty protocol completed. Stopped sec to exceeding target heart rate and leg fatigue . Maximum TW=125 Max HR Achieved=93.0% Maximum AS=453/84 Total Exercise Time=4:55. No reprod chest di scomfort. One couplet stage 2. Artifact during exam. Upsloping st segments. Fair exercise tolerance. Normal bp response. Recovery quick, minimal st depression inferior in recovery, otherwise unremarkab le. COMMENTS: Mild J-point depression is noted but associated with upsloping ST segments. Low proba bility of significant ischemia as cause of current presentation however long-term outpatient follow-u p recommended
== END 2018-04-29 19:42 | disposition home or self-care (01) ==
LOC: NEDA 09:46 → NEPGCP 09:46 → NEPE 09:46 → NEPGCP 18:20
PROVIDERS: ADMIT Internal Medicine Cardiovascular Disease; ATTEND Internal Medicine Cardiovascular Disease